=== PATIENT | male | born 1985 | race Two or more races ===

== ENCOUNTER → 2017-02-18 | Outpatient (REF) | payer OTHER | LOC: M SMT 13:37 | PROVIDERS: ATTEND Urology | DX: Z30.2 Encounter for sterilization (principal) ==

== ENCOUNTER → 2017-04-22 | Outpatient (REF) | payer OTHER ==
[2017-04-22 12:20] LABS: IMMMOTILE SPERM CENTRIFUGED ABSENT (ABSENT); IMMOTILE SPERM ABSENT (ABSENT); MOTILE SPERM ABSENT (ABSENT); MOTILE SPERM CENTRIFUGED ABSENT (ABSENT); SEMEN APPEARANCE OPAQUE (OPAQUE); SEMEN VISCOSITY LIQUID (LIQUID); SEMEN VOLUME 2.8 ml (4.0-5.0); WBC CONCENTRATION <=1 M/ml (<=1 M/ml)
== END ==
LOC: M SMT 11:25
DX: Z30.2 Encounter for sterilization (principal)
CPT/HCPCS: 89321